=== PATIENT | female | born 1995 | race African-American/Black ===

== ENCOUNTER 2021-08-20 23:14 | Emergency (ER) | payer SELFPAY ==
[2021-08-20] MEDS ORDERED: Ondansetron PF 4 MG/2 ML Vial ONE (23:25)
[2021-08-20] MEDS ORDERED: Ondansetron ODT 8 MG TAB ONE (23:29)
[2021-08-21 10:50] LABS: SARS-CoV-2 PCR by NAA Not Detected (NotDetected)
== END 2021-08-21 00:53 | disposition home or self-care (01) ==
LOC: ERS 23:14
DX: J06.9 Acute upper respiratory infection, unspecified (principal); Z20.822 Contact with and (suspected) exposure to COVID-19
CPT/HCPCS: 71045; J2405; Q0162; U0003; U0005

== ENCOUNTER 2022-02-19 21:58 | Emergency (ER) | payer SELFPAY ==
[2022-02-19] MEDS ORDERED: Ondansetron PF 4 MG/2 ML Vial ONE (22:47)
[2022-02-19] MEDS ORDERED: Morphine 4 MG/ML VIAL ONE (22:47)
[2022-02-19 23:03] LABS: #Eosinphils 0.1 thou/uL (0.0-0.7); #Monocytes 0.3 thou/uL (0.11-0.59); #Neutrophils 5.5 thou/uL (1.40-6.50); %Basophils 0.4 % (0.0-1.0); %Eosinophils 0.8 % (0.0-10.0); %Lymphocytes 14.8 % (21.0-51.0); %Monocytes 4.1 % (0.0-10.0); %Neutrophils 79.9 % (42.0-75.0); Hemoglobin 13.8 g/dL (12.0-16.0); Mean Corpuscular HGB CONC 34.3 g/dL (32.0-36.0); Mean Corpuscular Volume 93.2 fL (78.0-98.0); Mean Platelet Volume 9.2 fL (7.4-10.4); Platelet Count 116 thou/uL (130-400); RBC Distribution Width 13.7 % (11.5-14.5); White Blood Cell (WBC) Count 6.9 thou/uL (4.8-10.8)
[2022-02-19 23:08] LABS: ALT (SGPT) 59 U/L (8-55); AST (SGOT) 109 U/L (5-34); Albumin 4.8 g/dL (3.5-5.0); Alkaline Phosphatase 69 U/L (40-110); Anion Gap 22 mmol/L (10-20); BUN (Urea Nitrogen) 11 mg/dL (7.0-18.7); Bilirubin, Total 1.8 mg/dL (0.2-1.2); Calc. Creatinine Clearance 0 mL/min (70-130); Calcium 9.6 mg/dL (7.8-10.44); Carbon Dioxide 18 mmol/L (22-29); Chloride 99 mmol/L (98-107); Estimated GFR 80; Globulin 4.3 g/dL (2.4-3.5); Glucose 90 mg/dL (70-105); Lipase 51 U/L (8-78); Potassium 3.4 mmol/L (3.5-5.1); Protein, Total 9.1 g/dL (6.0-8.3); Sodium 136 mmol/L (136-145)
[2022-02-19 23:13] LABS: Bacteria/HPF 4+ HPF (None Seen); Bilirubin 2+ (Negative); Blood, Urine 3+ (Negative); Clarity Turbid (Clear); Glucose, Urine (Dipstick) Normal (Negative); Ketone, Urine 20 mg/dL (Negative); Leukocyte 500 Leu/uL (Negative); Mucous/LPF 1+ LPF (<2+); Nitrite Negative (Negative); Protein, Urine (Dipstick) 100 mg/dL (Neg-Trace); RBC/HPF Greater than 50 HPF (0-3); Renal Epithelial 0-3 HPF (None Seen); Specific Gravity, Urine 1.029 (1.002-1.036); WBC/HPF Greater than 50 HPF (0-3); pH, Urine 5.5 (5.0-9.0)
[2022-02-19 23:14] LABS: Pregnancy Test - Urine (BHCG) Negative (Negative); Pregu Control Background? CLEAR/WHITE (CLR/WHITE); Pregu Control Bar Appear? YES (CONTROL BAR); Specific Gravity 1.029 (1.002-1.036)
[2022-02-19 23:16] LABS: Large Platelets SLIGHT; MDiff Complete? YES; Platelet Morphology Comment Appears Decreased; RBC Morphology Normal
[2022-02-19] MEDS ORDERED: Ketorolac Tromethamine 30 MG/ML VIAL ONE (23:40)
[2022-02-20] MEDS ORDERED: Iopamidol-370 76% 500 ML 1 ML ONE (09:32)
== END 2022-02-20 02:45 | disposition home or self-care (01) ==
LOC: ERS 21:58
DX: K80.20 Calculus of gallbladder without cholecystitis without obstruction (principal); N12 Tubulo-interstitial nephritis, not specified as acute or chronic
CPT/HCPCS: 74177; 80053; 81003; 81015; 81025; 83690; 85025; 96374; 96375; J1885; J2270; J2405; Q9967

== ENCOUNTER 2022-05-11 16:55 | Emergency (ER) | payer SELFPAY ==
[2022-05-11 17:23] LABS: #Lymphocytes 2.3 thou/uL (1.20-3.40); #Monocytes 0.6 thou/uL (0.11-0.59); #Neutrophils 2.1 thou/uL (1.40-6.50); %Basophils 0.2 % (0.0-1.0); %Eosinophils 0.9 % (0.0-10.0); %Lymphocytes 45.8 % (21.0-51.0); %Monocytes 11.5 % (0.0-10.0); %Neutrophils 41.6 % (42.0-75.0); Hemoglobin 11.3 g/dL (12.0-16.0); Mean Corpuscular HGB CONC 31.8 g/dL (32.0-36.0); Mean Corpuscular Hemoglobin 30.1 pg (27.0-31.0); Mean Corpuscular Volume 94.7 fl (78.0-98.0); Mean Platelet Volume 7.3 fL (7.4-10.4); Platelet Count 359 10x3/uL (130-400); RBC Distribution Width 14.2 % (11.5-14.5); Red Blood Cell (RBC) Count 3.77 mill/uL (4.20-5.40); White Blood Cell (WBC) Count 4.9 10x3/uL (4.8-10.8)
[2022-05-11 18:10] LABS: BHCG - Serum Negative (NEGATIVE); Pregs Control Background? CLEAR/WHITE (CLR/WHITE); Pregs Control Bar Appear? YES (CONTROL BAR)
[2022-05-11 18:11] LABS: ALT (SGPT) 31 U/L (8-55); AST (SGOT) 28 U/L (5-34); Albumin 4.4 g/dL (3.5-5.0); Alkaline Phosphatase 57 U/L (40-110); Anion Gap 14 mmol/L (10-20); BUN (Urea Nitrogen) 8 mg/dL (7.0-18.7); Bilirubin, Total 0.5 mg/dL (0.2-1.2); Calc. Creatinine Clearance 0 mL/min (70-130); Calcium 8.7 mg/dL (7.8-10.44); Carbon Dioxide 24 mmol/L (22-29); Chloride 106 mmol/L (98-107); Estimated GFR 119; Globulin 3.9 g/dL (2.4-3.5); Glucose 98 mg/dL (70-105); Lipase 20 U/L (8-78); Potassium 3.4 mmol/L (3.5-5.1); Protein, Total 8.3 g/dL (6.0-8.3); Sodium 141 mmol/L (136-145)
[2022-05-11 19:59] LABS: Bacteria/HPF 2+ HPF (None Seen); Bilirubin Negative (Negative); Blood, Urine Negative (Negative); Clarity Turbid (Clear); Glucose, Urine (Dipstick) Normal (Negative); Ketone, Urine Negative (Negative); Leukocyte 75 Leu/uL (Negative); Nitrite Negative (Negative); Protein, Urine (Dipstick) Negative (Neg-Trace); RBC/HPF 0-3 HPF (0-3); Specific Gravity, Urine 1.006 (1.002-1.036); Urobilinogen Normal mg/dL (Less than 2); pH, Urine 6.5 (5.0-9.0)
[2022-05-11 20:05] LABS: Sperm/HPF Rare HPF (None Seen)
== END 2022-05-11 20:58 | disposition home or self-care (01) ==
LOC: ERS 16:55
DX: R10.9 Unspecified abdominal pain (principal); Y04.0XXA Assault by unarmed brawl or fight, initial encounter
CPT/HCPCS: 36415; 70450; 74176; 80053; 81003; 81015; 83690; 84703; 85025

== ENCOUNTER 2022-07-02 09:32 | Emergency (ER) | payer SELFPAY ==
[2022-07-02 10:27] LABS: #Eosinphils 0.1 thou/uL (0.0-0.7); #Lymphocytes 0.8 thou/uL (1.20-3.40); #Monocytes 0.3 thou/uL (0.11-0.59); #Neutrophils 1.8 thou/uL (1.40-6.50); %Basophils 0.8 % (0.0-1.0); %Eosinophils 3.3 % (0.0-10.0); %Lymphocytes 26.3 % (21.0-51.0); %Monocytes 9.7 % (0.0-10.0); %Neutrophils 59.9 % (42.0-75.0); Hemoglobin 11.9 g/dL (12.0-16.0); Mean Corpuscular HGB CONC 33.2 g/dL (32.0-36.0); Mean Corpuscular Hemoglobin 30.5 pg (27.0-31.0); Mean Corpuscular Volume 91.9 fl (78.0-98.0); Mean Platelet Volume 8.1 fL (7.4-10.4); Platelet Count 159 10x3/uL (130-400); RBC Distribution Width 15.6 % (11.5-14.5); Red Blood Cell (RBC) Count 3.89 mill/uL (4.20-5.40); White Blood Cell (WBC) Count 3.1 10x3/uL (4.8-10.8)
[2022-07-02 10:35] LABS: BHCG - Serum Negative (NEGATIVE); Pregs Control Background? CLEAR/WHITE (CLR/WHITE); Pregs Control Bar Appear? YES (CONTROL BAR)
[2022-07-02 10:39] LABS: ALT (SGPT) 28 U/L (8-55); AST (SGOT) 53 U/L (5-34); Albumin 4.1 g/dL (3.5-5.0); Alkaline Phosphatase 54 U/L (40-110); Anion Gap 11 mmol/L (10-20); BUN (Urea Nitrogen) 8 mg/dL (7.0-18.7); Bilirubin, Total 0.8 mg/dL (0.2-1.2); Calc. Creatinine Clearance 0 mL/min (70-130); Calcium 9.2 mg/dL (7.8-10.44); Carbon Dioxide 24 mmol/L (22-29); Chloride 103 mmol/L (98-107); Estimated GFR 121; Globulin 3.8 g/dL (2.4-3.5); Glucose 106 mg/dL (70-105); Lipase 37 U/L (8-78); Potassium 3.4 mmol/L (3.5-5.1); Protein, Total 7.9 g/dL (6.0-8.3); Sodium 135 mmol/L (136-145)
[2022-07-02] MEDS ORDERED: Iopamidol-370 76% 500 ML 1 ML ONE (10:41)
[2022-07-02 12:16] LABS: Bacteria/HPF None Seen HPF (None Seen); Bilirubin Negative (Negative); Blood, Urine Negative (Negative); Clarity Clear (Clear); Glucose, Urine (Dipstick) Normal (Negative); Ketone, Urine Negative (Negative); Leukocyte 250 Leu/uL (Negative); Nitrite Negative (Negative); Protein, Urine (Dipstick) Negative (Neg-Trace); RBC/HPF 0-3 HPF (0-3); Squamous Epithelial 0-3 HPF (0-3); WBC/HPF 21-50 HPF (0-3)
[2022-07-02 12:21] LABS: Specific Gravity, Urine 1.063 (1.002-1.036)
[2022-07-02] MEDS ORDERED: Ketorolac Tromethamine 30 MG/ML VIAL ONE (12:37)
== END 2022-07-02 13:01 | disposition home or self-care (01) ==
LOC: ERS 09:32
DX: N10 Acute pyelonephritis (principal)
CPT/HCPCS: 36415; 74177; 80053; 81003; 81015; 83690; 84703; 85025; 96374; J1885

== ENCOUNTER 2023-05-09 11:39 | Emergency (ER) | payer SELFPAY ==
[2023-05-09 12:36] LABS: #Basophils 0.1 thou/uL (0.0-0.2); #Monocytes 0.6 thou/uL (0.11-0.59); #Neutrophils 8.7 thou/uL (1.40-6.50); %Basophils 0.5 % (0.0-1.0); %Eosinophils 0.1 % (0.0-10.0); %Lymphocytes 22.3 % (21.0-51.0); %Monocytes 4.7 % (0.0-10.0); Hematocrit 36.5 % (36.0-47.0); Hemoglobin 11.9 g/dL (12.0-16.0); Mean Corpuscular HGB CONC 32.6 g/dL (32.0-36.0); Mean Corpuscular Hemoglobin 29.2 pg (27.0-31.0); Mean Corpuscular Volume 89.5 fl (78.0-98.0); Mean Platelet Volume 9.8 fL (7.4-10.4); Platelet Count 349 10x3/uL (130-400); RBC Distribution Width 15.6 % (11.5-14.5); Red Blood Cell (RBC) Count 4.08 mill/uL (4.20-5.40); White Blood Cell (WBC) Count 12.1 10x3/uL (4.8-10.8)
[2023-05-09 12:58] LABS: ALT (SGPT) 17 U/L (8-55); AST (SGOT) 31 U/L (5-34); Albumin 4.7 g/dL (3.5-5.0); Alkaline Phosphatase 84 U/L (40-110); Anion Gap 19 mmol/L (10-20); BUN (Urea Nitrogen) 5 mg/dL (7.0-18.7); Bilirubin, Total 0.3 mg/dL (0.2-1.2); Calc. Creatinine Clearance 0 mL/min (70-130); Carbon Dioxide 23 mmol/L (22-29); Chloride 100 mmol/L (98-107); Estimated GFR 122; Glucose 106 mg/dL (70-105); Potassium 3.5 mmol/L (3.5-5.1); Protein, Total 8.7 g/dL (6.0-8.3); Sodium 138 mmol/L (136-145)
== END 2023-05-09 13:52 | disposition left against medical advice (07) ==
LOC: ERS 11:39
DX: Z53.21 Procedure and treatment not carried out due to patient leaving prior to being seen by health care provider (principal)
CPT/HCPCS: 36415; 71045; 80053; 83605; 85025; 87040

== ENCOUNTER 2023-05-12 12:28 | Emergency (ER) | payer SELFPAY ==
[2023-05-12] MEDS ORDERED: Acetaminophen 325 MG TAB ONE (13:03)
[2023-05-12] MEDS ORDERED: Dexamethasone 10 MG/ML VIAL ONE (13:04)
[2023-05-12 14:07] LABS: SARS-CoV-2 NAA Rapid Test Not Detected (NotDetected)
[2023-05-12] MEDS ORDERED: Ondansetron PF 4 MG/2 ML Vial ONE (14:13)
[2023-05-12] MEDS ORDERED: Haloperidol Lactate 5 MG/ML VIAL ONE (14:39)
[2023-05-12 15:41] LABS: #Monocytes 0.2 thou/uL (0.11-0.59); #Neutrophils 12.7 thou/uL (1.40-6.50); %Basophils 0.3 % (0.0-1.0); %Lymphocytes 3.8 % (21.0-51.0); %Monocytes 1.3 % (0.0-10.0); %Neutrophils 94.2 % (42.0-75.0); Hematocrit 33.2 % (36.0-47.0); Mean Corpuscular HGB CONC 33.1 g/dL (32.0-36.0); Mean Corpuscular Hemoglobin 29.3 pg (27.0-31.0); Mean Corpuscular Volume 88.3 fl (78.0-98.0); Mean Platelet Volume 9.4 fL (7.4-10.4); Platelet Count 273 10x3/uL (130-400); RBC Distribution Width 15.7 % (11.5-14.5); Red Blood Cell (RBC) Count 3.76 mill/uL (4.20-5.40); White Blood Cell (WBC) Count 13.5 10x3/uL (4.8-10.8)
[2023-05-12 15:50] LABS: BHCG - Serum Negative (NEGATIVE); Pregs Control Background? CLEAR/WHITE (CLR/WHITE); Pregs Control Bar Appear? YES (CONTROL BAR)
[2023-05-12 16:04] LABS: ALT (SGPT) 16 U/L (8-55); AST (SGOT) 31 U/L (5-34); Albumin 4.2 g/dL (3.5-5.0); Alkaline Phosphatase 80 U/L (40-110); Anion Gap 17 mmol/L (10-20); BUN (Urea Nitrogen) 8 mg/dL (7.0-18.7); Bilirubin, Total 0.6 mg/dL (0.2-1.2); Calc. Creatinine Clearance 0 mL/min (70-130); Calcium 8.4 mg/dL (7.8-10.44); Carbon Dioxide 22 mmol/L (22-29); Chloride 106 mmol/L (98-107); Estimated GFR 121; Globulin 3.6 g/dL (2.4-3.5); Glucose 113 mg/dL (70-105); Lipase 21 U/L (8-78); Potassium 3.7 mmol/L (3.5-5.1); Protein, Total 7.8 g/dL (6.0-8.3); Sodium 141 mmol/L (136-145)
== END 2023-05-12 17:06 | disposition home or self-care (01) ==
LOC: ERS 12:28
DX: F41.9 Anxiety disorder, unspecified (principal); R11.2 Nausea with vomiting, unspecified; B34.9 Viral infection, unspecified; Z20.822 Contact with and (suspected) exposure to COVID-19
CPT/HCPCS: 36415; 71045; 80053; 83690; 84703; 85025; 96361; 96374; 96375; J1100; J1630; J2405

== ENCOUNTER 2023-07-02 18:39 | Emergency (ER) | payer MEDICAID, SELFPAY | END 2023-07-02 20:01 | disposition home or self-care (01) | LOC: ERS 18:39 | DX: K08.89 Other specified disorders of teeth and supporting structures (principal); R09.81 Nasal congestion | CPT/HCPCS: 99282 ==

== ENCOUNTER 2024-01-07 14:33 | Inpatient (IN) | payer BC, SELFPAY ==
[2024-01-07] MEDS ORDERED: Thiamine HCl 200 MG/2 ML VIAL ONE (15:50)
[2024-01-07] MEDS ORDERED: Ketorolac Tromethamine 30 MG (1 mL) VIAL ONE (15:50)
[2024-01-07] MEDS ORDERED: Ondansetron PF 4 MG/2 ML Vial ONE (15:50)
[2024-01-07] MEDS ORDERED: Magnesium 2 GM/50 ML BAG (IN WATER) ONE (15:50)
[2024-01-07 16:29] LABS: #Basophils Less than 0.03 10x3/uL (0.0-0.2); #Eosinphils Less than 0.03 10x3/uL (0.0-0.7); %Basophils 0.3 % (0.0-1.0); %Lymphocytes 9.4 % (21.0-51.0); %Monocytes 1.6 % (0.0-10.0); Hemoglobin 13.3 g/dL (12.0-16.0); Mean Corpuscular HGB CONC 32.4 g/dL (32.0-36.0); Mean Corpuscular Hemoglobin 28.5 pg (27.0-31.0); Platelet Count 187 10x3/uL (130-400); RBC Distribution Width 17.9 % (11.5-14.5); Red Blood Cell (RBC) Count 4.66 mill/uL (4.20-5.40)
[2024-01-07 16:30] LABS: Bacteria/HPF None Seen HPF (None Seen); Bilirubin Negative (Negative); Blood, Urine 1+ (Negative); CAUTI Indications for Culture Pelvic or flank pain; Clarity Clear (Clear); Glucose, Urine (Dipstick) Normal (Negative); Ketone, Urine 150 mg/dL (Negative); Leukocyte Negative Leu/uL (Negative); Nitrite Negative (Negative); Protein, Urine (Dipstick) 300 mg/dL (Neg-Trace); RBC/HPF 0-3 HPF (0-3); Specific Gravity, Urine 1.015 (1.002-1.036); Urobilinogen Normal mg/dL (Less than 2); WBC/HPF 0-3 HPF (0-3); pH, Urine 5.5 (5.0-9.0)
[2024-01-07 16:31] LABS: Urine Culture Reflex No No
[2024-01-07 16:41] LABS: BHCG - Serum Negative (NEGATIVE); Pregs Control Background? CLEAR/WHITE (CLR/WHITE); Pregs Control Bar Appear? YES (CONTROL BAR)
[2024-01-07 16:53] LABS: ALT (SGPT) 92 U/L (8-55); AST (SGOT) 157 U/L (5-34); Alkaline Phosphatase 86 U/L (40-110); Anion Gap 38 mmol/L (10-20); BUN (Urea Nitrogen) 11 mg/dL (7.0-18.7); Bilirubin, Total 0.6 mg/dL (0.2-1.2); CK (CPK) 475 U/L (29-168); Calc. Creatinine Clearance 0 mL/min (70-130); Calcium 9.3 mg/dL (7.8-10.44); Carbon Dioxide 8 mmol/L (22-29); Chloride 97 mmol/L (98-107); Estimated GFR 109; Globulin 5.7 g/dL (2.4-3.5); Glucose 61 mg/dL (70-105); Lipase 22 U/L (8-78); Potassium 4.7 mmol/L (3.5-5.1); Protein, Total 10.7 g/dL (6.0-8.3); Sodium 138 mmol/L (136-145)
[2024-01-07] MEDS ORDERED: D5 1/2 NS w/20 mEq KCL 1,000 ML ONE (17:28)
[2024-01-07] MEDS ORDERED: Ondansetron ODT 4 MG TAB PO PRN (18:19)
[2024-01-07 19:00] LABS: Alcohol 108.1 mg/dL (Less than 10); Salicylate Less than 8.0 mg/dL (15.0-30.0)
[2024-01-07 19:02] LABS: Amphetamine Not Detected (NotDetected); Barbiturates Screen Not Detected (NotDetected); Benzodiazepine Screen Not Detected (NotDetected); Cocaine Metabolite Screen Not Detected (NotDetected); Methadone Not Detected (NotDetected); Methamphetamine Not Detected (NotDetected); Opiate Screen Not Detected (NotDetected); Oxycodone Screen Not Detected (NotDetected); Phencyclidine (PCP) Not Detected (NotDetected); THC/Cannabinoid Screen Not Detected (NotDetected); Tricyclic Screen Not Detected (NotDetected)
[2024-01-07 19:03] LABS: Acetaminophen Less than 10 mcg/mL (10.0-30.0)
[2024-01-07 19:04] LABS: Anion Gap 29 mmol/L (10-20); BUN (Urea Nitrogen) 8 mg/dL (7.0-18.7); Calc. Creatinine Clearance 0 mL/min (70-130); Calcium 7.8 mg/dL (7.8-10.44); Carbon Dioxide Less than 8 mmol/L (22-29); Chloride 106 mmol/L (98-107); Estimated GFR 124; Glucose 71 mg/dL (70-105); Sodium 135 mmol/L (136-145)
[2024-01-07] MEDS: Ondansetron PF 4 MG/2 ML Vial IVP PRN (21:11)
[2024-01-07] MEDS: Famotidine 20 MG TAB PO SCH (21:15)
[2024-01-07] MEDS: Multivit, Therapeutic 1 TAB PO SCH (21:15)
[2024-01-07] MEDS: Folic Acid 1 MG TAB PO SCH (21:15)
[2024-01-07] MEDS: Dextrose 5%-Lactated Ringers 1,000 ML IV SCH (21:37)
[2024-01-07] MEDS: Ketorolac Tromethamine 30 MG (1 mL) VIAL IVP PRN (21:46)
[2024-01-07 23:13] VITALS: BMI 23.5
[2024-01-07] MEDS: chlordiazePOXIDE HCl 25 MG CAP PO SCH ×2 (23:43→23:49)
[2024-01-08 00:21] LABS: Anion Gap 24 mmol/L (10-20); BUN (Urea Nitrogen) 6 mg/dL (7.0-18.7); Calc. Creatinine Clearance 119 mL/min (70-130); Calcium 7.9 mg/dL (7.8-10.44); Carbon Dioxide 9 mmol/L (22-29); Chloride 105 mmol/L (98-107); Estimated GFR 114; Glucose 88 mg/dL (70-105); Potassium 4.6 mmol/L (3.5-5.1); Sodium 133 mmol/L (136-145)
[2024-01-08 04:23] LABS: #Basophils Less than 0.03 10x3/uL (0.0-0.2); #Eosinphils Less than 0.03 10x3/uL (0.0-0.7); %Basophils 0.2 % (0.0-1.0); %Eosinophils 0.2 % (0.0-10.0); %Lymphocytes 30.9 % (21.0-51.0); %Monocytes 8.4 % (0.0-10.0); %Neutrophils 60.1 % (42.0-75.0); Hemoglobin 10.2 g/dL (12.0-16.0); Mean Corpuscular HGB CONC 32.9 g/dL (32.0-36.0); Mean Corpuscular Hemoglobin 29.1 pg (27.0-31.0); Mean Corpuscular Volume 88.3 fL (78.0-98.0); Mean Platelet Volume 10.7 fL (7.4-10.4); Platelet Count 167 10x3/uL (130-400); RBC Distribution Width 17.7 % (11.5-14.5); Red Blood Cell (RBC) Count 3.51 mill/uL (4.20-5.40)
[2024-01-08 04:46] LABS: ALT (SGPT) 59 U/L (8-55); AST (SGOT) 90 U/L (5-34); Albumin 3.7 g/dL (3.5-5.0); Alkaline Phosphatase 58 U/L (40-110); Anion Gap 18 mmol/L (10-20); BUN (Urea Nitrogen) 7 mg/dL (7.0-18.7); Calc. Creatinine Clearance 115 mL/min (70-130); Carbon Dioxide 14 mmol/L (22-29); Chloride 103 mmol/L (98-107); Estimated GFR 110; Glucose 107 mg/dL (70-105); Magnesium 2.2 mg/dL (1.6-2.6); Phosphorus 1.3 mg/dL (2.3-4.7); Potassium 4.1 mmol/L (3.5-5.1); Protein, Total 7.7 g/dL (6.0-8.3); Sodium 131 mmol/L (136-145)
[2024-01-08] MEDS: chlordiazePOXIDE HCl 25 MG CAP PO SCH ×2 (06:02→14:21)
[2024-01-08] MEDS: Dextrose 5%-Lactated Ringers 1,000 ML IV SCH (06:03)
[2024-01-08] MEDS: Thiamine 100 MG TAB PO SCH (08:51)
[2024-01-08] MEDS: PHOS-NAK 1 PKT PACK PO SCH (08:51)
[2024-01-08] MEDS: Folic Acid 1 MG TAB PO SCH (08:51)
[2024-01-08] MEDS: Multivit, Therapeutic 1 TAB PO SCH (08:52)
[2024-01-08 10:55] LABS: ALT (SGPT) 54 U/L (8-55); AST (SGOT) 81 U/L (5-34); Albumin 3.6 g/dL (3.5-5.0); Alkaline Phosphatase 56 U/L (40-110); Anion Gap 15 mmol/L (10-20); BUN (Urea Nitrogen) 5 mg/dL (7.0-18.7); Bilirubin, Total 1.3 mg/dL (0.2-1.2); Calc. Creatinine Clearance 120 mL/min (70-130); Calcium 8.3 mg/dL (7.8-10.44); Carbon Dioxide 19 mmol/L (22-29); Chloride 102 mmol/L (98-107); Estimated GFR 116; Globulin 3.6 g/dL (2.4-3.5); Glucose 149 mg/dL (70-105); Potassium 3.5 mmol/L (3.5-5.1); Protein, Total 7.2 g/dL (6.0-8.3); Sodium 132 mmol/L (136-145)
[2024-01-08 22:23] LABS: Phosphorus 0.8 mg/dL (2.3-4.7)
[2024-01-09] MEDS: Potassium Phosphate 9 MMOL in Sodium Chloride 0.9% 100 ML IVPB SCH (00:16)
[2024-01-09 06:32] LABS: ALT (SGPT) 45 U/L (8-55); AST (SGOT) 68 U/L (5-34); Albumin 3.3 g/dL (3.5-5.0); Alkaline Phosphatase 50 U/L (40-110); Anion Gap 15 mmol/L (10-20); BUN (Urea Nitrogen) Less than 4 mg/dL (7.0-18.7); Calc. Creatinine Clearance 149 mL/min (70-130); Calcium 8.5 mg/dL (7.8-10.44); Carbon Dioxide 24 mmol/L (22-29); Chloride 103 mmol/L (98-107); Estimated GFR 126; Globulin 3.6 g/dL (2.4-3.5); Glucose 124 mg/dL (70-105); Phosphorus 1.8 mg/dL (2.3-4.7); Potassium 2.9 mmol/L (3.5-5.1); Protein, Total 6.9 g/dL (6.0-8.3); Sodium 139 mmol/L (136-145)
[2024-01-09 08:33] LABS: #Basophils Less than 0.03 10x3/uL (0.0-0.2); %Basophils 0.3 % (0.0-1.0); %Eosinophils 1.3 % (0.0-10.0); %Lymphocytes 37.1 % (21.0-51.0); %Monocytes 3.8 % (0.0-10.0); Hematocrit 31.1 % (36.0-47.0); Hemoglobin 10.3 g/dL (12.0-16.0); Mean Corpuscular HGB CONC 33.1 g/dL (32.0-36.0); Mean Corpuscular Hemoglobin 29.3 pg (27.0-31.0); Mean Corpuscular Volume 88.6 fL (78.0-98.0); Mean Platelet Volume 11.7 fL (7.4-10.4); Platelet Count 133 10x3/uL (130-400); RBC Distribution Width 17.4 % (11.5-14.5); Red Blood Cell (RBC) Count 3.51 mill/uL (4.20-5.40)
[2024-01-09] MEDS: PHOS-NAK 1 PKT PACK PO SCH ×2 (10:01→20:44)
[2024-01-09] MEDS: Potassium Chloride 20 MEQ TAB PO SCH (10:01)
[2024-01-09] MEDS: chlordiazePOXIDE HCl 25 MG CAP PO SCH (14:39)
[2024-01-09 15:37] LABS: Anion Gap 17 mmol/L (10-20); BUN (Urea Nitrogen) Less than 4 mg/dL (7.0-18.7); Calc. Creatinine Clearance 149 mL/min (70-130); Calcium 9.2 mg/dL (7.8-10.44); Carbon Dioxide 20 mmol/L (22-29); Chloride 104 mmol/L (98-107); Estimated GFR 126; Glucose 96 mg/dL (70-105); Phosphorus 1.4 mg/dL (2.3-4.7); Potassium 3.9 mmol/L (3.5-5.1); Sodium 137 mmol/L (136-145)
[2024-01-10] MEDS ORDERED: chlordiazePOXIDE HCl 25 MG CAP PO SCH (09:00)
[2024-01-10 11:36] LABS: ALT (SGPT) 84 U/L (8-55); AST (SGOT) 138 U/L (5-34); Albumin 3.4 g/dL (3.5-5.0); Alkaline Phosphatase 52 U/L (40-110); Anion Gap 15 mmol/L (10-20); BUN (Urea Nitrogen) 6 mg/dL (7.0-18.7); Calc. Creatinine Clearance 144 mL/min (70-130); Calcium 9.3 mg/dL (7.8-10.44); Carbon Dioxide 25 mmol/L (22-29); Chloride 100 mmol/L (98-107); Estimated GFR 125; Globulin 3.9 g/dL (2.4-3.5); Glucose 102 mg/dL (70-105); Phosphorus 3.3 mg/dL (2.3-4.7); Potassium 3.6 mmol/L (3.5-5.1); Protein, Total 7.3 g/dL (6.0-8.3); Sodium 136 mmol/L (136-145)
[2024-01-10 11:51] LABS: #Basophils Less than 0.03 10x3/uL (0.0-0.2); %Basophils 0.3 % (0.0-1.0); %Eosinophils 4.3 % (0.0-10.0); %Lymphocytes 26.8 % (21.0-51.0); %Monocytes 5.7 % (0.0-10.0); %Neutrophils 62.6 % (42.0-75.0); Hematocrit 31.2 % (36.0-47.0); Hemoglobin 10.5 g/dL (12.0-16.0); Mean Corpuscular HGB CONC 33.7 g/dL (32.0-36.0); Mean Corpuscular Hemoglobin 28.5 pg (27.0-31.0); Mean Corpuscular Volume 84.8 fL (78.0-98.0); Mean Platelet Volume 10.8 fL (7.4-10.4); Platelet Count 95 10x3/uL (130-400); RBC Distribution Width 16.8 % (11.5-14.5); Red Blood Cell (RBC) Count 3.68 mill/uL (4.20-5.40)
[2024-01-10 14:02] VITALS: BP 118/91; TEMP 98.3
== END 2024-01-10 13:53 | disposition home or self-care (01) | DRG 897 ==
LOC: ERS 14:33 → 2NO 17:40 → T4-A 01-09 14:15
PROVIDERS: ADMIT Student in an Organized Health Care Education/Training Program; ATTEND Student in an Organized Health Care Education/Training Program
DX: F10.139 Alcohol abuse with withdrawal, unspecified (principal); E87.29 Other acidosis; R74.01 Elevation of levels of liver transaminase levels; E83.39 Other disorders of phosphorus metabolism; Z98.51 Tubal ligation status; Z98.890 Other specified postprocedural states
CPT/HCPCS: 36415; 36416; 80053; 80306; 80307; 81001; 82550; 83690; 83735; 84100; 84703; 85025; 96361; 96374; 96375; J1885; J2405; J3411; J3475; J3480; J3490